=== PATIENT | male | born 1980 | race Caucasian/White ===

== ENCOUNTER 2021-04-11 08:23 | Emergency (ER) | payer OTHER ==
[2021-04-11] MEDS ORDERED: HYDROCODONE/APAP 10/325 TAB ONE (09:24)
--- NOTE | 2021-04-11 10:49 | RAD REPORT ---
EXAM DESCRIPTION: RAD - Ribs Right - 04/11/2021 9:27 am CLINICAL HISTORY: PAIN COMPARISON: No comparisons FINDINGS: Minimally displaced fracture of the lateral right seventh rib is noted. No underlying pneu mothorax is evident.
--- NOTE | 2021-04-11 11:01 | ER ---
Nurse's Notes [facility] Name: Jeremias Toro Age: 40 yrs Sex: Male : 1980 Arrival Date: 04/11/2021 Time: 08:26 Bed 24 Private MD: Diagnosis: Multiple fractures of ribs, right side Presentation: 04/11 08:42 Chief complaint: Patient states: he hit his back on the knob of a dresser last night, ap3 and it has been painful since. Coronavirus screen: Vaccine status: Patient reports being unvaccinated. Ebola Screen: No symptoms or risks identified at this time. Initial Sepsis Screen: Does the patient meet any 2 criteria? No. Patient's initial sepsis screen is negative. Does the patient have a suspected source of infection? No. Patient's initial sepsis screen is negative. Risk Assessment: Do you want to hurt yourself or someone else? Patient reports no desire to harm self or others. Onset of symptoms was April 10, 2021. 08:42 Method Of Arrival: Ambulatory ap3 08:42 Acuity: [place] 4 ap3 Triage Assessment: 08:44 General: Appears in no apparent distress. Behavior is cooperative. Pain: Complains of ap3 pain in right subscapular area Pain began suddenly, 1 day ago. Neuro: Level of Consciousness is awake, alert, obeys commands, Oriented to person, place, time, situation, Moves all extremities. Gait is steady, Speech is normal. Cardiovascular: Patient's skin is warm and dry. Respiratory: Airway is patent Respiratory effort is even, unlabored. Musculoskeletal: Swelling present in right subscapular area small area of swelling where pt reports hitting his back. Historical: - Allergies: 08:43 No Known Allergies; ap3 - Home Meds: 08:43 None [Active]; ap3 - PMHx: 08:43 Anxiety; Bipolar disorder; Schizophrenia; ap3 - Immunization history:: Client reports having NOT received the Covid vaccine. - Social history:: Smoking status: Patient reports the use of cigarette tobacco products, smokes one pack cigarettes per day. Patient uses alcohol, occasionally. Screenin:45 Abuse screen: Denies threats or abuse. Nutritional screening: No deficits noted. ap3 Tuberculosis screening: No symptoms or risk factors identified. Fall Risk None identified. Assessment: 08:45 Reassessment: see triage assessment. Neuro: No deficits noted. ap3 Vital Signs: 08:42 BP 130 / 90; Pulse 92; Resp 18; Temp 98.6(O); Pulse Ox 99% on R/A; Weight 54.43 kg; ap3 Height 5 ft. 7 in. (170.18 cm); Pain 10/10; 09:39 BP 163 / 95; Pulse 59; Resp 17; Pulse Ox 99% on R/A; ap3 10:41 BP 140 / 94; Pulse 70; Resp 16; Pulse Ox 98% on R/A; ap3 08:42 Body Mass Index 18.79 (54.43 kg, 170.18 cm) ap3 ED Course: 08:26 Patient arrived in ED. am2 08:36 Christin Vivar, RN is Primary Nurse. ap3 08:38 Tom Canas PA is PHCP. jr8 08:38 Kelvin Ibanez MD is Attending Physician. jr8 08:43 Triage completed. ap3 08:45 Arm band placed on right wrist. ap3 08:45 Patient has correct armband on for positive identification. Bed in low position. Call ap3 light in reach. Adult w/ patient. Pulse ox on. NIBP on. Door closed. Noise minimized. 09:05 Pt visited by significant other. ap3 09:07 X-Ray at pt bedside. ap3 09:27 XRAY Ribs RIGHT In Process Unspecified. EDMS Administered Medications: 09:00 Drug: [place] (HYDROcodone-acetaminophen) 10 mg-325 mg 1 tabs {Note: RASS-0.} Route: PO; ap3 10:28 Follow up: Response: No adverse reaction ap3 Outcome: 11:00 Discharge ordered by . jr8 11:08 Patient left the ED. ap3 Signatures: Dispatcher [employer] EDMS Tom Canas PA PA jr8 Christin Pace am2 Christin Vivar, RN RN ap3
--- NOTE | 2021-04-11 11:01 | EDPHYS ---
Physician Documentation [facility] Name: Jeremias Toro Age: 40 yrs Sex: Male : 1980 Arrival Date: 04/11/2021 Time: 08:26 Bed 24 Private MD: ED Physician Kelvin Ibanez HPI: 04/11 08:55 This 40 yrs old Male presents to ER via Ambulatory with complaints of Back jr8 Pain. 08:55 Onset: The symptoms/episode began/occurred acutely, last night. The pain does not jr8 radiate. Associated signs and symptoms: The patient has no apparent associated signs or symptoms. Modifying factors: The patient symptoms are alleviated by nothing, the patient symptoms are aggravated by any movement. Severity of symptoms: At their worst the symptoms were moderate, in the emergency department the symptoms are unchanged. The patient has not experienced similar symptoms in the past. The patient has not recently seen a physician. This is a 40-year-old male patient came in for right mid back pain after sustaining a fall hitting a knob on his dresser. Patient stated that he has had excruciating pain with breathing and with motion since then. Denies shortness of breath or any other injury.. Historical: - Allergies: 08:43 No Known Allergies; ap3 - Home Meds: 08:43 None [Active]; ap3 - PMHx: 08:43 Anxiety; Bipolar disorder; Schizophrenia; ap3 - Immunization history:: Client reports having NOT received the Covid vaccine. - Social history:: Smoking status: Patient reports the use of cigarette tobacco products, smokes one pack cigarettes per day. Patient uses alcohol, occasionally. ROS: 08:55 Eyes: Negative for injury, pain, redness, and discharge, ENT: Negative for injury, jr8 pain, and discharge, Neck: Negative for injury, pain, and swelling, Cardiovascular: Negative for chest pain, palpitations, and edema, Respiratory: Negative for shortness of breath, cough, wheezing, and pleuritic chest pain, Abdomen/GI: Negative for abdominal pain, nausea, vomiting, diarrhea, and constipation, MS/Extremity: Negative for injury and deformity, Skin: Negative for injury, rash, and discoloration, Neuro: Negative for headache, weakness, numbness, tingling, and seizure. 08:55 Back: Positive for pain at rest, pain with movement, of the right subscapular area. Exam: 08:55 Head/Face: Normocephalic, atraumatic. Neck: Trachea midline, no thyromegaly or masses jr8 palpated, and no cervical lymphadenopathy. Supple, full range of motion without nuchal rigidity, or vertebral point tenderness. No Meningismus. Chest/axilla: Normal chest wall appearance and motion. Nontender with no deformity. No lesions are appreciated. Cardiovascular: Regular rate and rhythm with a normal S1 and S2. No gallops, murmurs, or rubs. Normal PMI, no JVD. No pulse deficits. Respiratory: Lungs have equal breath sounds bilaterally, clear to auscultation and percussion. No rales, rhonchi or wheezes noted. No increased work of breathing, no retractions or nasal flaring. Abdomen/GI: Soft, non-tender, with normal bowel sounds. No distension or tympany. No guarding or rebound. No evidence of tenderness throughout. Skin: Warm, dry with normal turgor. Normal color with no rashes, no lesions, and no evidence of cellulitis. MS/ Extremity: Pulses equal, no cyanosis. Neurovascular intact. Full, normal range of motion. Neuro: Awake and alert, GCS 15, oriented to person, place, time, and situation. Cranial nerves II-XII grossly intact. Motor strength 5/5 in all extremities. Sensory grossly intact. 08:55 Constitutional: The patient appears alert, awake, uncomfortable. 08:55 Back: pain, that is moderate, of the right subscapular area, ROM is painful, normal spinal alignment noted, CVA tenderness, is absent, Pain over the right posterior ribs near the subscapular region. No crepitus noted.. Vital Signs: 08:42 BP 130 / 90; Pulse 92; Resp 18; Temp 98.6(O); Pulse Ox 99% on R/A; Weight 54.43 kg; ap3 Height 5 ft. 7 in. (170.18 cm); Pain 10/10; 09:39 BP 163 / 95; Pulse 59; Resp 17; Pulse Ox 99% on R/A; ap3 10:41 BP 140 / 94; Pulse 70; Resp 16; Pulse Ox 98% on R/A; ap3 08:42 Body Mass Index 18.79 (54.43 kg, 170.18 cm) ap3 MDM: 08:38 Patient medically screened. jr8 10:58 Data reviewed: vital signs, nurses notes, radiologic studies, plain films. Data jr8 interpreted: Pulse oximetry: on room air is 98 %. Interpretation: normal. Counseling: I had a detailed discussion with the patient and/or guardian regarding: the historical points, exam findings, and any diagnostic results supporting the discharge/admit diagnosis, radiology results, the need for outpatient follow up, a family practitioner, to return to the emergency department if symptoms worsen or persist or if there are any questions or concerns that arise at home. ED course: With patient that he has minimally displaced rib fracture on the right side consistent with where his pain was. We will control his pain with anti-inflammatories but otherwise to make sure that he is up walking around and doing deep breathing. We will give him a few days off so he can relax. If you get worse or shortness of breath or to ensue to come back for further evaluation.. 04/11 08:53 Order name: XRAY Ribs RIGHT; Complete Time: 10:53 jr8 Administered Medications: 09:00 Drug: [place] (HYDROcodone-acetaminophen) 10 mg-325 mg 1 tabs {Note: RASS-0.} Route: PO; ap3 10:28 Follow up: Response: No adverse reaction ap3 Disposition: 04/12 08:49 Co-signature as Attending Physician, Kelvin Ibanez MD I agree with the assessment and sp3 plan of care. Disposition Summary: 04/11/21 11:00 Discharge Ordered Location: Home jr Problem: new jr8 Symptoms: have improved jr8 Condition: Stable jr8 Diagnosis - Multiple fractures of ribs, right side jr8 Followup: jr8 - With: Private Physician - When: 5 - 6 days - Reason: Recheck today's complaints, Continuance of care, Re-evaluation by your physician Discharge Instructions: - Discharge Summary Sheet jr8 - Rib Fracture jr8 Forms: - Medication Reconciliation Form jr8 - Thank You Letter jr8 - Work release form jr8 - Antibiotic Education jr8 - Prescription Opioid Use jr8 Prescriptions: - Ibuprofen 800 mg Oral Tablet - take 1 tablet by ORAL route every 8 hours As needed take with food; 30 tablet; jr8 Refills: 0, Product Selection Permitted Signatures: Dispatcher [employer] Tom Winn PA PA jr8 Christin Vivar, CAT RN ap3 Kelvin Ibanez MD MD sp3
[2021-04-11 11:14] VITALS: TEMP 98.6
[2021-04-11 11:17] VITALS: BP 140/94; O2SAT 98
== END 2021-04-11 11:08 | disposition home or self-care (01) ==
LOC: ER 08:23
DX: S22.41XA Multiple fractures of ribs, right side, initial encounter for closed fracture (principal); W22.8XXA Striking against or struck by other objects, initial encounter; Y93.9 Activity, unspecified; Y92.013 Bedroom of single-family (private) house as the place of occurrence of the external cause; F17.210 Nicotine dependence, cigarettes, uncomplicated
CPT/HCPCS: 99283

== ENCOUNTER 2023-02-13 01:55 | Emergency (ER) | payer OTHER ==
--- OUTSIDE RECORDS SUMMARY | 2023-02-13 01:58 | XMS REPORT | Continuity of Care Document ---
:1980 Author Organization [facility] t Address 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 Problems Condition Condition Condition Status Onset Resolution Last Treating Co mments Source Name Details Category Date Date Treatment Clinician Date No known No known Disease Unive rs active active ity of problems problems [facility] Allergies, Adverse Reactions, Alerts Allergy Allergy Status Severity Reaction(s) Onset Inactive Treating Comm ents Source Name Type Date Date Clinician NO KNOWN Drug Active Univers ALLERGIE Class ity of S [facility] Social History Social Habit Start Date Stop Date Quantity Comments Source Exposure to Not sure University SARS-CoV-2 [place] [facility] (event) Branch History of Cigarette Smoker Tia Villa eybold - tobacco use External Tobacco use and 2022-07-31 2022-07-31 Smokeless tobacco Ke lopez Vivasybold - exposure 00:00:00 00:00:00 non-user External Alcohol intake 2022-07-31 2022-07-31 Ex-drinker Tia larry - 00:00:00 00:00:00 (finding) External Sex Ass[birth year] At [birth year] Tia teran - 00:00:00 00:00:00 External Smoking Status Start Date Stop Date Source Smokes tobacco daily 2022-07-31 00:00:00 Tia Gerardo - External Unknown if ever smoked [facility] Medical Branch Medications Ordered Filled Start Stop Current Ordering Indication Dosage Frequency Signature Comments Components Source Medication Medication Date Date Medication? Clinician (SIG) Name Name Risperidone Yes 2mg Take 2 mg K elsey 2 MG oral 2-13 by mouth 2 Seyb old Tablet 13:53: times - 52 daily Externa l Divalproex Yes Take by Rita ey Sodium ER 2-13 mouth Seybold 500 MG oral 13:53: - 52 Externa l Meloxicam Yes [id number] 7.5mg Take 1 Tia 7.5 MG oral 2-13 tablet Seybol d Tablet 00:00: (7.5 mg - 00 total) by Externa mouth l daily Trazodone Yes Tia HCl 150 MG 2-09 Seybold oral Tablet 00:00: - 00 Externa l hydrOXYzine Yes Tia HCl 25 MG 2-05 Seybold oral Tablet 00:00: - 00 Externa l ibuprofen 0 2020- No 600mg 600 mg, Uni vers (IBU) 03-14 Oral, ity of tablet 600 18:15: 17:21 ONCE, 1 Will as mg 00 :00 dose, On Medical Mon Branch 03/14/21 at 1315, MAURY HYDROcodone 2020- No 1{tbl} 1 tablet, Univers -acetaminop 03-14 Oral, ity of hen (NORCO 18:15: 17:21 ONCE, 1 Will as 5) 5-325 mg 00 :00 dose, On Medi yanely tablet 1 Mon Branch tablet 03/14/21 at 1315, MAURY ibuprofen 2020-0 Yes [id number] 600mg Take 1 Univers 600 mg 03-14 [id number] tablet by ity of tablet 00:00: mouth [place] 00 every 6 Medical (six) Branch hours as needed for Pain (scale 4-6). traZODone 0 Yes 150mg Take 150 Uni vers 150 mg 7-03 mg by ity of tablet 01:24: mouth at [place] 54 bedtime. Medical Branch divalproex Yes 1500mg Take 1,500 Univers ER 7-03 mg by ity of (DEPAKOTE 01:24: mouth [place] ER) 500 mg 54 every Medical 24 hr evening. Branch tablet risperiDONE Yes 4mg Take 4 mg U nivers 4 mg tablet 7-03 by mouth ity of 01:24: every [place] 54 evening. Medical Branch traZODone Yes 150mg Take 150 Uni vers 150 mg 7-03 mg by ity of tablet 01:24: mouth at [place] 54 bedtime. Medical Branch divalproex Yes 1500mg Take 1,500 Univers ER 7-03 mg by ity of (DEPAKOTE 01:24: mouth [place] ER) 500 mg 54 every Medical 24 hr evening. Branch tablet risperiDONE Yes 4mg Take 4 mg U nivers 4 mg tablet 7-03 by mouth ity of 01:24: every [place] 54 evening. Medical Branch traZODone Yes 150mg Take 150 Uni vers 150 mg 7-02 mg by ity of tablet 20:24: mouth at [place] 54 bedtime. Medical Branch divalproex Yes 1500mg Take 1,500 Univers ER 7-02 mg by ity of (DEPAKOTE 20:24: mouth [place] ER) 500 mg 54 every Medical 24 hr evening. Branch tablet risperiDONE Yes 4mg Take 4 mg U nivers 4 mg tablet 7-02 by mouth ity of 20:24: every [place] 54 evening. Medical Branch Vital Signs Vital Name Observation Time Observation Value Comments Source Systolic blood 2022-07-31 19:52:00 142 mm[Hg] Tia Gerardo - pressure External Diastolic blood 2022-07-31 19:52:00 76 mm[Hg] Mony Gerardo - pressure External Heart rate 2022-07-31 19:52:00 56 /min Tia almeidabopawel - External Body temperature 2022-07-31 19:52:00 36.33 Shari Rita Gerardo - External Respiratory rate 2022-07-31 19:52:00 19 /min Rita Gerardo - External Body height 2022-07-31 19:52:00 170.2 cm Tia cisse - External Body weight 2022-07-31 19:52:00 60.328 kg Tia cisse - External BMI 2022-07-31 19:52:00 20.83 kg/m2 Tia cisse - External Oxygen saturation in 2022-07-31 19:52:00 99 /min Tia Gerardo - Arterial blood by External Pulse oximetry Systolic blood 2021-03-14 17:15:00 123 mm[Hg] Univer sity of pressure [facility] Diastolic blood 2021-03-14 17:15:00 81 mm[Hg] Unive rsity of [facility] Heart rate 2021-03-14 17:15:00 70 /min [facility] Body temperature 2021-03-14 17:15:00 36.89 Shari [facility] Respiratory rate 2021-03-14 17:15:00 18 /min [facility] Body weight 2021-03-14 17:15:00 54.885 kg Universi [facility] BMI 2021-03-14 17:15:00 18.95 kg/m2 [facility] Oxygen saturation in 2021-03-14 17:15:00 100 /min [facility] Arterial blood by [facility] Pulse oximetry Branch Procedures Procedure Date / Time Performed Performing Clinician [facility] e ASSIGNMENT OF BENEFITS 2021-03-14 18:01:43 Doctor Unassigned, No [facility] XR ANKLE 3+ VW LEFT 2021-03-14 17:35:53 [facility] XR FOOT 3+ VW LEFT 2021-03-14 17:35:53 Luciana Kearney [facility] NOTICE OF PRIVACY 2021-03-14 17:21:25 Doctor Unassigned, No Univ [facility] CONSENT/REFUSAL FOR 2021-03-14 17:10:40 Doctor Unassigned, No [facility] DIAGNOSIS AND [facility] Medical Branch TREATMENT REFERRAL- 2021-02-10 05:01:00 Doctor Unassigned, [facility] REQUEST/RESPONSE Name [facility] Encounters Start End Encounter Admission Attending Care Care Encounter Source Date/Time Date/Time Type Type Clinicians Facility Department ID 2021-04-19 Emergency [facility] [id number] Univers 01:37:50 ity [facility] 2022-09-18 2022-09-18 Outpatient TIA CORTEZ [id number] Tia 11:00:00 11:00:00 BONNY Sedavidsonol rigoberto 2022-09-13 2022-09-13 Outpatient TIA CORTEZ [id number] Tia 11:15:00 11:15:00 BONNY Seybol rigoberto 2022-09-04 2022-09-04 Outpatient TIA CORTEZ [id number] Tia 11:00:00 11:00:00 BONNY Seybol rigoberto 2022-07-31 2022-07-31 Outpatient TIA CORTEZ [id number] Tia 14:00:00 14:00:00 BONNY Londonool rigoberto 2021-03-14 2021-03-14 Emergency [facility] [id number] Univers 12:22:00 13:43:00 Luciana Tello [id number] i [facility] [id number] [facility] [id number] [facility] 084 Branch 2021-02-16 2021-02-16 [facility] [id number] Univers 14:30:00 14:30:00 [facility] 2021-02-10 2021-02-10 Orders Doctor ROY [id number] Univers 00:00:00 00:00:00 Only UnassignedPINKY [id number] ity of [place] [facility] [id number] [place] [address] [id number] [facility] 009 Branch 2021-02-01 2021-02-01 [facility] [id number] Univers 13:30:00 13:30:00 CORY [facility] Results Test Description Test Time Test Comments Results Result Comments Source Valproic Acid Level 2018-12-23 09:26:37 Test Item Value Reference Range Interpretation Comme nts Valproic Acid Level (test code = Valproic Acid Level) 64.2 ug/mL(g) 50.0-100.0 Thyroid Stimulating [id number] 07:52:44 Test Item Value Reference Range Interpretation Comments TSH (test code = TSH) 2.760 mIU/mL 0.270-4.200 Thyroxine Free [id number] 07:52:44 Test Item Value Reference Range Interpretation Comments T4 Free (test code = T4 Free) 1.280 ng/dL 0.930-1.700 Comprehensive Metabolic [id number] 07:43:19 Test Item Value Reference Range Interpretation Comments Sodium Level (test code = Sodium 141.0 mmol/L 135.0-145.0 Level) Potassium Level (test code = 4.5 mmol/L 3.5-5.1 Potassium Level) Chloride Level (test code = 104 mmol/L 98-105 Chloride Level) CO2 (test code = CO2) 27 mmol/L 22-29 Anion Gap (test code = Anion 10 mmol/L 7-16 Gap) BUN (test code = BUN) 13.00 mg/dL 6.00-20.00 Creatinine Level (test code = 0.80 mg/dL 0.70-1.20 Creatinine Level) BUN/Creat Ratio (test code = 16 N BUN/Creat Ratio) Glucose Level (test code = 88 mg/dL 70-115 Glucose Level) Calcium Level (test code = 9.1 mg/dL 8.3-10.5 Calcium Level) Alk Phos (test code = Alk Phos) 59 U/L 40-129 Bilirubin Total (test code = 0.2 mg/dL 0.1-0.9 Bilirubin Total) Albumin Level (test code = 4.3 g/dL 3.5-5.2 Albumin Level) Protein Total (test code = 6.2 g/dL 6.4-8.3 L Protein Total) ALT (test code = ALT) 14 U/L 1-41 AST (test code = AST) 15 U/L 1-40 Globulin (test code = Globulin) 1.9 g/dL 2.9-3.1 L A/G Ratio (test code = A/G 2.3 ratio N Ratio) Comprehensive Metabolic [id number] 07:43:19 Test Item Value Reference Range Interpretation Comments Sodium Level (test 141.0 mmol/L 135.0-145.0 code = Sodium Level) Potassium Level 4.5 mmol/L 3.5-5.1 (test code = Potassium Level) Chloride Level (test 104 mmol/L 98-105 code = Chloride Level) CO2 (test code = 27 mmol/L 22-29 CO2) Anion Gap (test code 10 mmol/L 7-16 = Anion Gap) BUN (test code = 13.00 mg/dL 6.00-20.00 BUN) Creatinine Level 0.80 mg/dL 0.70-1.20 (test code = Creatinine Level) BUN/Creat Ratio 16 N (test code = BUN/Creat Ratio) Glucose Level (test 88 mg/dL 70-115 code = Glucose Level) Calcium Level (test 9.1 mg/dL 8.3-10.5 code = Calcium Level) Alk Phos (test code 59 U/L 40-129 = Alk Phos) Bilirubin Total 0.2 mg/dL 0.1-0.9 (test code = Bilirubin Total) Albumin Level (test 4.3 g/dL 3.5-5.2 code = Albumin Level) Protein Total (test 6.2 g/dL 6.4-8.3 L code = Protein Total) ALT (test code = 14 U/L 1-41 ALT) AST (test code = 15 U/L 1-40 AST) Globulin (test code 1.9 g/dL 2.9-3.1 L = Globulin) A/G Ratio (test code 2.3 ratio N = A/G Ratio) eGFR AA (test code = >60 N eGFR (e stimated eGFR AA) mL/min/1.73 m2 Glomerular Filtration Rate ) is an estimated va lue, calculated from the patient's serum creatinine usin g the MDRD equation. It is NOT the patient 's actual GFR. The eGFR provides a more clinically usef ul measure of kidn ey disease than se rum creatinine alone.This calculation solange es sex and race in to account, if the information is provided. If th e race is not provided, and t he patient is -Ronel n, multiply by 1.2 12. If sex is not provided, and t he patient is fema le, multiply by 0.7 42. Results for pat ients <18 years of ag e have not been validated by th e MDRD study and should be interpreted wit h caution. eGFR R esult Interpretation: eGFR > or = 60 is in the Normal RangeeGF R < 60 may mean kid hector diseaseeGFR < 1 5 may mean kidney failure Rang es recommended by the National Kidney Foundation, http://nkdep.ni h.gov Comprehensive Metabolic [id number] 07:43:19 Test Item Value Reference Range Interpretation Comments Sodium Level (test 141.0 mmol/L 135.0-145.0 code = Sodium Level) Potassium Level 4.5 mmol/L 3.5-5.1 (test code = Potassium Level) Chloride Level (test 104 mmol/L 98-105 code = Chloride Level) CO2 (test code = 27 mmol/L 22-29 CO2) Anion Gap (test code 10 mmol/L 7-16 = Anion Gap) BUN (test code = 13.00 mg/dL 6.00-20.00 BUN) Creatinine Level 0.80 mg/dL 0.70-1.20 (test code = Creatinine Level) BUN/Creat Ratio 16 N (test code = BUN/Creat Ratio) Glucose Level (test 88 mg/dL 70-115 code = Glucose Level) Calcium Level (test 9.1 mg/dL 8.3-10.5 code = Calcium Level) Alk Phos (test code 59 U/L 40-129 = Alk Phos) Bilirubin Total 0.2 mg/dL 0.1-0.9 (test code = Bilirubin Total) Albumin Level (test 4.3 g/dL 3.5-5.2 code = Albumin Level) Protein Total (test 6.2 g/dL 6.4-8.3 L code = Protein Total) ALT (test code = 14 U/L 1-41 ALT) AST (test code = 15 U/L 1-40 AST) Globulin (test code 1.9 g/dL 2.9-3.1 L = Globulin) A/G Ratio (test code 2.3 ratio N = A/G Ratio) eGFR AA (test code = >60 N eGFR (e stimated eGFR AA) mL/min/1.73 m2 Glomerular Filtration Rate ) is an estimated va lue, calculated from the patient's serum creatinine usin g the MDRD equation. It is NOT the patient 's actual GFR. The eGFR provides a more clinically usef ul measure of kidn ey disease than se rum creatinine alone.This calculation solange es sex and race in to account, if the information is provided. If th e race is not provided, and t he patient is -Ronel n, multiply by 1.2 12. If sex is not provided, and t he patient is fema le, multiply by 0.7 42. Results for pat ients <18 years of ag e have not been validated by [facility] MDRD study and should be interpreted wit h caution. eGFR R esult Interpretation: eGFR > or = 60 is in the Normal RangeeGF R < 60 may mean kid hector diseaseeGFR < 1 5 may mean kidney failure Rang es recommended by the National Kidney Foundation, http://nkdep.ni h.gov eGFR Non-AA (test >60.00 N eGFR (aurelia mated code = eGFR Non-AA) mL/min/1.73 m2 Glomer ular Filtration Rate ) is an estimated va lue, calculated from the patient's serum creatinine usin g the MDRD equation. It is NOT the patient 's actual GFR. The eGFR provides a more clinically usef ul measure of kidn ey disease than se rum creatinine alone.This calculation solange es sex and race in to account, if the information is provided. If th e race is not provided, and t he patient is -Ronel n, multiply by 1.2 12. If sex is not provided, and t he patient is fema le, multiply by 0.7 42. Results for pat ients <18 years of ag e have not been validated by [facility] MDRD study and should be interpreted wit h caution. eGFR R esult Interpretation: eGFR > or = 60 is in the Normal RangeeGF R < 60 may mean kid hector diseaseeGFR < 1 5 may mean kidney failure Rang es recommended by the National Kidney Foundation, http://nkdep.ni h.gov RPR [id number] 17:53:31 Test Item Value Reference Range Interpretation Comments RPR Qual (test code = RPR Qual) Non-Reactive Non-Reactive Reactive Control (test code = Reactive Reactive Control) Weak Reactive Control (test Weak Reactive code = Weak Reactive Control) Non-Reactive Control (test code Non-Reactive = Non-Reactive Control) Lot # (test code = Lot #) [id number] N Expiration Dt (test code = 04-17-2020 N Expiration Dt) Thyroid Stimulating [id number] 08:53:34 Test Item Value Reference Range Interpretation Comments TSH (test code = TSH) 4.670 mIU/mL 0.270-4.200 H Lipid [id number] 08:38:28 Test Item Value Reference Range Interpretation Comments Cholesterol Total 179 mg/dL 0-200 RISK OF HE ART (test code = DISEASEPublishe d by Cholesterol Total) [place] [employer] Lorri lyte Optimal Borderl ine Increased RiskC HOL <200 200-239 >240TRI G <150 150-199 >200HDL Male >60 <40HDL Fema le >60 <50LDL <100 130 -159 >160LDL Near op timal is 100-129 Triglycerides (test 201 mg/dL 9-200 H code = Triglycerides) HDL (test code = HDL) 50 mg/dL 40-60 LDL (test code = LDL) 88 mg/dL 0-130 The eq uation being used in this calcula tion is LDL = (Chol - H DL) - (Trig / 5) VLDL (test code = 40 mg/dL 5-40 The equati on being used VLDL) in this calcula tion is VLDL = Trig / 5 Chol/HDL (test code = 3.6 ratio 0.0-5.0 Chol/HDL) LDL/HDL Ratio (test 2 N The equa tion being used code = LDL/HDL Ratio) in thi s calculation is LDL/HDL Ratio=L DL Calc/HDL Chol Valproic Acid [id number] 08:38:22 Test Item Value Reference Range Interpretation Comments Valproic Acid Level (test code 22.2 ug/mL(g) 50.0-100.0 L = Valproic Acid Level)
[2023-02-13] MEDS ORDERED: ONDANSETRON 4 MG (ODT) TAB ONE (02:24)
--- NOTE | 2023-02-13 02:51 | ER ---
Nurse's Notes [facility] Name: Jeremias Toro Age: 42 yrs Sex: Male : 1980 Arrival Date: 02/13/2023 Time: 01:55 Bed 5 Private MD: Diagnosis: Acute pharyngitis, unspecified Presentation: 02/13 02:04 Chief complaint: Patient states: nausea cough sore throat and fever since yesterday am. Coronavirus screen: Vaccine status: Patient reports receiving the 2nd dose of the covid vaccine. Ebola Screen: Patient negative for fever greater than or equal to 101.5 degrees Fahrenheit, and additional compatible Ebola Virus Disease symptoms. Initial Sepsis Screen: Does the patient meet any 2 criteria? No. Patient's initial sepsis screen is negative. Does the patient have a suspected source of infection? No. Patient's initial sepsis screen is negative. Risk Assessment: Do you want to hurt yourself or someone else? Patient reports no desire to harm self or others. Onset of symptoms was February 12, 2023 at 08:00. 02:04 Method Of Arrival: Ambulatory 02:04 Acuity: CATALINA 4 kl Triage Assessment: 02:06 General: Appears uncomfortable, Behavior is calm, cooperative. EENT: Reports pain when kl swallowing. Neuro: No deficits noted. Respiratory: Reports cough that is Airway is patent Trachea midline Respiratory effort is even, unlabored. Historical: - Allergies: 02:07 No Known Allergies; kl - PMHx: 02:06 Anxiety; Bipolar disorder; Schizophrenia; sg5 - Immunization history:: Adult Immunizations up to date. - Social history:: Smoking status: Patient reports the use of cigarette tobacco products, smokes one-half pack cigarettes per day. Screenin:06 [facility] ED Fall Risk Assessment (Adult) History of falling in the last 3 months, sg5 including since admission No falls in past 3 months (0 pts). Abuse screen: Denies threats or abuse. Nutritional screening: No deficits noted. Tuberculosis screening: No symptoms or risk factors identified. Assessment: 02:05 General: Appears uncomfortable, Behavior is calm, cooperative, appropriate for age, sg5 agitated, Reports fever for 12-24 hours. Pain: Complains of pain in throat. Neuro: Level of Consciousness is awake, alert, obeys commands, Oriented to person, place, time, situation, Appropriate for age. Cardiovascular: Capillary refill < 3 seconds Patient's skin is warm and dry. Respiratory: Airway is patent Trachea midline Respiratory effort is even, unlabored, Respiratory pattern is regular, symmetrical. Respiratory: Breath sounds are clear bilaterally. GI: No signs and/or symptoms were reported involving the gastrointestinal system. : No signs and/or symptoms were reported regarding the genitourinary system. EENT: Throat is pink Reports pain when swallowing. Derm: No signs and/or symptoms reported regarding the dermatologic system. Musculoskeletal: No signs and/or symptoms reported regarding the musculoskeletal system. Vital Signs: 02:04 BP 135 / 91; Pulse 75; Resp 20; Temp 98.3(TE); Pulse Ox 98% on R/A; Weight 68.04 kg kl (R); Height 5 ft. 7 in. ; Pain 8/10; 02:06 BP 123 / 78; Pulse 78; Resp 16; Pulse Ox 98% on R/A; sg5 02:04 Body Mass Index 23.49 (68.04 kg, 170.18 cm) kl 02:04 Pain Scale: Adult kl ED Course: 01:56 Patient arrived in ED. ag3 02:00 Kailee Mehta FNP-C is [facility]. kb 02:00 Anton Leblanc MD is Attending Physician. kb 02:04 Arm band placed on right wrist. vc1 02:06 Triage completed. kl 02:06 Patient has correct armband on for positive identification. Bed in low position. Call sg5 light in reach. Side rails up X 1. Valuables Left with patient. 03:01 Rosetta Vance, CAT is Primary Nurse. vc1 03:01 No provider procedures requiring assistance completed. Patient did not have IV access vc1 during this emergency room visit. 03:02 Provided Education on: use over the counter throat lozenge for sore throat. vc1 Administered Medications: 02:14 Drug: Ondansetron PO 4 mg Route: PO; sg5 03:01 Follow up: Response: No adverse reaction; Marked relief of symptoms vc1 03:01 Drug: Amoxicillin-Clavulanate PO 875 mg Route: PO; vc1 03:01 Follow up: Response: Medication administered at discharge. vc1 Medication: 03:01 VIS not applicable for this client. vc1 Outcome: 02:51 Discharge ordered by . rubio 03:01 Discharged to home ambulatory. vc1 03:01 Condition: good 03:01 Discharge instructions given to patient, Instructed on discharge instructions, follow up and referral plans. medication usage, Demonstrated understanding of instructions, follow-up care, medications, Prescriptions given X 2. 03:02 Patient left the ED. vc1 Signatures: Kailee Mehta, FLY WORKER-C FLY WORKER-CkJoselin Márquez, RN RN Anton Garcia MD MD cha Gomez, Alice ag3 Rosetta Vance RN RN vc1 Olive Mei RN RN sg5
--- NOTE | 2023-02-13 02:52 | EDPHYS ---
Physician Documentation [facility] Name: Jeremias Toro Age: 42 yrs Sex: Male : 1980 Arrival Date: 02/13/2023 Time: 01:55 Bed 5 Private MD: ED Physician Anton Leblanc HPI: 02/13 02:04 This 42 yrs old Male presents to ER via Unassigned with complaints of Fever, Sore kb Throat. 02:04 The patient or guardian reports cough, that is intermittent, described as mild, flu kb symptoms, low-grade fever. Onset: The symptoms/episode began/occurred today. Severity of symptoms: At their worst the symptoms were mild, moderate, in the emergency department the symptoms are unchanged. Modifying factors: The symptoms are alleviated by nothing, the symptoms are aggravated by nothing. Associated signs and symptoms: Pertinent positives: fever, sore throat. The patient has not experienced similar symptoms in the past. The patient has not recently seen a physician. Pt reports sore throat, cough, fever and nausea since this morning. States "I think I have covid.". Historical: - Allergies: 02:07 No Known Allergies; kl - PMHx: 02:06 Anxiety; Bipolar disorder; Schizophrenia; sg5 - Immunization history:: Adult Immunizations up to date. - Social history:: Smoking status: Patient reports the use of cigarette tobacco products, smokes one-half pack cigarettes per day. ROS: 02:03 Cardiovascular: Negative for chest pain, palpitations, and edema. kb 02:03 Constitutional: Positive for fever. 02:03 ENT: Positive for sore throat. 02:03 Respiratory: Positive for cough. 02:03 Abdomen/GI: Positive for nausea. 02:03 All other systems are negative. Exam: 02:03 Constitutional: This is a well developed, well nourished patient who is awake, alert, kb and in no acute distress. Head/Face: Normocephalic, atraumatic. ENT: Moist Mucous membranes Cardiovascular: Regular rate and rhythm with a normal S1 and S2. No gallops, murmurs, or rubs. No pulse deficits. Respiratory: Respirations even and unlabored. No increased work of breathing. Talking in full sentences Skin: Warm, dry with normal turgor. Normal color. MS/ Extremity: Pulses equal, no cyanosis. Neurovascular intact. Full, normal range of motion. Neuro: Awake and alert, GCS 15, oriented to person, place, time, and situation. Moves all extremities. Normal gait. Vital Signs: 02:04 BP 135 / 91; Pulse 75; Resp 20; Temp 98.3(TE); Pulse Ox 98% on R/A; Weight 68.04 kg kl (R); Height 5 ft. 7 in. ; Pain 8/10; 02:06 BP 123 / 78; Pulse 78; Resp 16; Pulse Ox 98% on R/A; sg5 02:04 Body Mass Index 23.49 (68.04 kg, 170.18 cm) kl 02:04 Pain Scale: Adult kl MDM: 02:00 Patient medically screened. kb 02:03 Differential diagnosis: strep, covid, uri. Data reviewed: vital signs, nurses notes. kb 02:47 Transition of care: After a detail discussion of the patient's case, care is kb transferred to Anton Leblanc MD. 02/13 02:02 Order name: Strep; Complete Time: 02:50 kb 02/13 02:19 Order name: SARS-COV-2 RT PCR; Complete Time: 02:50 EDMS 02/13 02:36 Order name: Throat Culture EDMS Administered Medications: 02:14 Drug: Ondansetron PO 4 mg Route: PO; sg5 03:01 Follow up: Response: No adverse reaction; Marked relief of symptoms vc1 03:01 Drug: Amoxicillin-Clavulanate PO 875 mg Route: PO; vc1 03:01 Follow up: Response: Medication administered at discharge. vc1 Disposition Summary: 02/13/23 02:51 Discharge Ordered Location: Home rubio Problem: new rubio Symptoms: have improved rubio Condition: Stable rubio Diagnosis - Acute pharyngitis, unspecified rubio Followup: rubio - With: Private Physician - When: - Reason: Recheck today's complaints, Continuance of care, Re-evaluation by your physician Discharge Instructions: - Discharge Summary Sheet rubio - Pharyngitis rubio - Sore Throat rubio - Upper Respiratory Infection, Adult rubio - Pharyngitis, Upip-rv-Dysn rubio Forms: - Medication Reconciliation Form rubio - Thank You Letter ruibo - Antibiotic Education rubio - Prescription Opioid Use rubio - Patient Portal Instructions rubio - Leadership Thank You Letter [facility] Prescriptions: - Augmentin 875-125 mg Oral Tablet - take 1 tablet by ORAL route every 12 hours for 7 days; 14 tablet; Refills: 0, [facility] Product Selection Permitted - Alee-D 12 Hour 60-120 mg Oral Tablet Sustained Release 12 hr - take 1 tablet by ORAL route every 12 hours As needed; 20 tablet; Refills: 0, [facility] Product Selection Permitted Signatures: Dispatcher [employer] Kailee Carlson, Joselin Forman, RN Anton Delgado MD MD cha Calcote, Vanessa, RN RN vc1 Olive Mei RN RN sg5 Corrections: (The following items were deleted from the chart) 02:19 02:03 SARS-COV-2 Antigen Rapid+I.LAB.BRZ ordered. [facility] JERONIMOAR
[2023-02-13] MEDS ORDERED: AMOX/K CLAV 875 MG TAB ONE (03:07)
[2023-02-13 04:31] VITALS: BP 123/78; TEMP 98.3; O2SAT 98
== END 2023-02-13 03:02 | disposition home or self-care (01) ==
LOC: ER 01:55
DX: J02.9 Acute pharyngitis, unspecified (principal); R50.9 Fever, unspecified; F17.210 Nicotine dependence, cigarettes, uncomplicated; Z20.822 Contact with and (suspected) exposure to COVID-19
CPT/HCPCS: 87070; 87081; 87635; Q0162

== ENCOUNTER 2023-05-02 13:35 | Emergency (ER) | payer OTHER ==
--- OUTSIDE RECORDS SUMMARY | 2023-05-02 13:38 | XMS REPORT | Continuity of Care Document ---
:1980 Author Organization [facility] t Address 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 Problems Condition Condition Condition Status Onset Resolution Last Treating Co mments Source Name Details Category Date Date Treatment Clinician Date No known No known Disease Unive rs active active ity of problems problems [facility] Allergies, Adverse Reactions, Alerts Allergy Allergy Status Severity Reaction(s) Onset Inactive Treating Comm ents Source Name Type Date Date Clinician NO KNOWN Drug Active Univers ALLERGIE Class ity of S [facility] Social History Social Habit Start Date Stop Date Quantity Comments Source Exposure to Not sure University SARS-CoV-2 [facility] (event) [place] History of Cigarette Smoker Tia almeidabold - tobacco use External Tobacco use and 2022-07-31 2022-07-31 Smokeless tobacco Marcelo marroquin Seybold - exposure 00:00:00 00:00:00 non-user External Alcohol intake 2022-07-31 2022-07-31 Ex-drinker Tia larry - 00:00:00 00:00:00 (finding) External Sex Ass[birth year] Tia teran - 00:00:00 00:00:00 External Smoking Status Start Date Stop Date Source Smokes tobacco daily 2022-07-31 00:00:00 Tia Gerardo - External Unknown if ever smoked [facility] Medications Ordered Filled Start Stop [...] 13:53: - 52 Externa l Meloxicam Yes [id number] 7.5mg Take 1 Tia 7.5 MG oral 2-13 tablet Seybol d Tablet 00:00: (7.5 mg - 00 total) by Externa mouth l daily Trazodone Yes Tia HCl 150 MG 2-09 Seybold oral Tablet 00:00: - 00 Externa l hydrOXYzine 0 Yes Tia HCl 25 MG 2-05 Seybold oral Tablet 00:00: - 00 Externa l ibuprofen 0 2020- No 600mg 600 mg, Uni vers (IBU) 03-14 Oral, ity of tablet 600 18:15: 17:21 ONCE, 1 Will as mg 00 :00 dose, On Medical Mon Branch 03/14/21 at 1315, MAURY HYDROcodone 2020-0 202- No 1{tbl} 1 tablet, Univers -acetaminop 03-14 Oral, ity of hen (NORCO 18:15: 17:21 ONCE, 1 Will as 5) 5-325 mg 00 :00 dose, On Medi yanely tablet 1 Mon Branch tablet 03/14/21 at 1315, MAURY ibuprofen 2020-0 Yes [id number] 600mg Take 1 Univers 600 mg 03-14 [id number] tablet by ity of tablet 00:00: mouth [place] 00 every 6 Medical (six) Branch hours as needed for Pain (scale 4-6). traZODone 0 Yes 150mg Take 150 Uni vers 150 mg 7-03 mg by ity of tablet 01:24: mouth at [place] 54 bedtime. Medical Branch divalproex 0 Yes 1500mg Take 1,500 Univers ER 7-03 mg by ity of (DEPAKOTE 01:24: mouth [place] ER) 500 mg 54 every Medical 24 hr evening. Branch tablet risperiDONE Yes 4mg Take 4 mg U nivers 4 mg tablet 7-03 by mouth ity of 01:24: every [place] 54 evening. Medical Branch traZODone 0 Yes 150mg Take 150 Uni [...] every [place] 54 evening. Medical Branch traZODone 0 Yes 150mg Take 150 Uni vers 150 mg 7-02 mg by ity of tablet 20:24: mouth at [place] 54 bedtime. Medical Branch divalproex 0 Yes 1500mg Take 1,500 Univers ER 7-02 [...] Heart rate 2022-07-31 19:52:00 56 /min Tia cisse - External Body temperature 2022-07-31 19:52:00 36.33 [...] 17:15:00 123 mm[Hg] Univer sity of pressure [facility] Diastolic blood 2021-03-14 17:15:00 81 mm[Hg] Unive rsity of [facility] Heart rate 2021-03-14 17:15:00 70 /min [facility] Body temperature 2021-03-14 17:15:00 36.89 Shari [facility] Respiratory rate 2021-03-14 17:15:00 18 /min [facility] Body weight 2021-03-14 17:15:00 54.885 kg Universi [facility] BMI 2021-03-14 17:15:00 18.95 kg/m2 [facility] Oxygen saturation in 2021-03-14 17:15:00 100 /min [facility] Arterial blood by [facility] Pulse oximetry Branch Procedures Procedure Date / Time Performed Performing Clinician Formerly [facility] e ASSIGNMENT OF BENEFITS 2021-03-14 18:01:43 Doctor Unassigned, No [facility] XR ANKLE 3+ VW LEFT 2021-03-14 17:35:53 [facility] XR FOOT 3+ VW LEFT 2021-03-14 17:35:53 Luciana Kearney [facility] y [facility] NOTICE OF PRIVACY 2021-03-14 17:21:25 Doctor Unassigned, No Univ [facility] CONSENT/REFUSAL FOR 2021-03-14 17:10:40 Doctor Unassigned, [facility] Branch TREATMENT REFERRAL- 2021-02-10 05:01:00 Doctor Unassigned, No Univer sitstefanie [facility] REQUEST/RESPONSE Name [facility] Encounters Start End Encounter Admission Attending Care Care Encounter Source Date/Time Date/Time Type Type Clinicians Facility Department ID 2021-04-19 Emergency [facility] [id number] Univers 01:37:50 ity of [facility] 2022-09-18 2022-09-18 Outpatient TIA CORTEZ [id number] Tia 11:00:00 11:00:00 BONNYNEL [place] rigoberto 2022-09-13 2022-09-13 Outpatient TIA CORTEZ [id number] Tia 11:15:00 11:15:00 BONNY Seybol rigoberto 2022-09-04 2022-09-04 Outpatient TIA CORTEZ [id number] Tia 11:00:00 11:00:00 BONNY Seybol rigoberto 2022-07-31 2022-07-31 Outpatient TIA CORTEZ [id number] Tia 14:00:00 14:00:00 BONNY [place]ool rigoberto 2021-03-14 2021-03-14 Emergency [facility] [id number] Univers 12:22:00 13:43:00 Luciana Tello [id number] i [facility] [id number] [facility] [id number] [facility] 084 Branch 2021-02-16 2021-02-16 [facility] [id number] Univers 14:30:00 14:30:00 MAXIME ity [facility] 2021-02-10 2021-02-10 Orders Doctor ROY [id number] Univers 00:00:00 00:00:00 Only Unassigned, PINKY [id number] ity of [place] [facility] [id number] [place] [address] [id number] [facility] 009 Branch 2021-02-01 2021-02-01 [facility] [id number] Univers 13:30:00 13:30:00 [facility] Results Test Description Test Time Test Comments Results Result Comments Source Valproic Acid Level 2018-12-23 09:26:37 Test Item Value Reference Range Interpretation Comme nts Valproic Acid Level (test code = Valproic Acid Level) 64.2 ug/mL(g) 50.0-100.0 Thyroid Stimulating [id number] 07:52:44 Test Item Value Reference Range Interpretation Comments TSH (test code = TSH) 2.760 mIU/mL 0.270-4.200 Thyroxine Free [id number] 07:52:44 Test Item Value Reference Range Interpretation Comments T4 Free (test code = T4 Free) 1.280 ng/dL 0.930-1.700 Comprehensive Metabolic [id number] 07:43:19 Test Item Value Reference Range Interpretation [...] A/G 2.3 ratio N Ratio) Comprehensive Metabolic [id number] 07:43:19 Test Item Value Reference Range Interpretation [...] National Kidney Foundation, http://nkdep.ni h.gov Comprehensive Metabolic [id number] 07:43:19 Test Item Value Reference Range Interpretation [...] ag e have not been validated by [facility] MDRD study and should be interpreted wit [...] ag e have not been validated by [facility] MDRD study and should be interpreted wit h caution. eGFR R esult Interpretation: eGFR > or = 60 is in the Normal RangeeGF R < 60 may mean kid hector diseaseeGFR < 1 5 may mean kidney failure Rang es recommended by the National Kidney Foundation, http://nkdep.ni h.gov RPR [id number] 17:53:31 Test Item Value Reference Range Interpretation [...] = 04-17-2020 N Expiration Dt) Thyroid Stimulating [id number] 08:53:34 Test Item Value Reference Range Interpretation Comments TSH (test code = TSH) 4.670 mIU/mL 0.270-4.200 H Lipid [id number] 08:38:28 Test Item Value Reference Range Interpretation Comments Cholesterol Total 179 mg/dL 0-200 RISK OF HE ART (test code = DISEASEPublishe d by Cholesterol Total) [place] [employer] Lorri lyte Optimal Borderl ine Increased RiskC HOL <200 200-239 >240TRI G <150 150-199 >200HDL Male >60 <40HDL Fema le >60 <50LDL <100 130 -159 >160LDL [facility] is 100-129 Triglycerides (test 201 mg/dL 9-200 [...] LDL/HDL Ratio=L DL Calc/HDL Chol Valproic Acid [id number] 08:38:22 Test Item Value Reference Range Interpretation Comments Valproic Acid Level (test code 22.2 ug/mL(g) 50.0-100.0 L = Valproic Acid Level)
[2023-05-02 14:10] LABS: Specific Gravity < 1.005 (1.005-1.030); Urine Bilirubin NEGATIVE (Negative); Urine Blood Negative (Negative); Urine Clarity Clear (Clear); Urine Color Colorless (Yellow); Urine Glucose NEGATIVE (Negative); Urine Protein NEGATIVE (Negative); Urine Urobilinogen Normal (Normal); Urine pH 5.5 (5.0-7.0)
[2023-05-02 14:10] LABS: Absolute Lymphocytes (CBC) 2.3 K/uL (0.7-4.9); Hematocrit 43.4 % (39.6-49.0); MCV 81.6 fL (80-100); MPV 8.2 fL (7.6-11.3); Platelets 138 thou/uL (152-406); RBC Red Blood Cell Count 5.32 M/uL (4.33-5.43)
[2023-05-02 14:20] LABS: Barbiturates NEGATIVE (NEGATIVE); Benzodiazepines NEGATIVE (NEGATIVE); Cocaine NEGATIVE (NEGATIVE); METHAMPHETAM POSITIVE (NEGATIVE); Methadone NEGATIVE (NEGATIVE); Opiates NEGATIVE (NEGATIVE); Phencyclidine NEGATIVE (NEGATIVE); THC Cannibis NEGATIVE (NEGATIVE)
[2023-05-02 14:31] LABS: ALT/SGPT 16 U/L (16-61); AST/SGOT 8 U/L (15-37); Albumin 3.8 g/dL (3.4-5.0); Alkaline Phosphatase 92 U/L (45-117); BUN Blood Urea Nitrogen 7 mg/dL (7-18); Bicarbonate 27 mEq/L (21-32); Bilirubin Direct 0.2 mg/dL (0-0.2); Bilirubin Indirect, Calculated 0.4 mg/dL (0.2-0.8); Bilirubin Total 0.6 mg/dL (0.2-1.0); Glomerular Filtration Rate 113 ml/min (=/>90); Glucose Level 102 mg/dL (74-106); Potassium 3.3 mEq/L (3.5-5.1); Protein, Total 7.2 g/dL (6.4-8.2); Sodium Level 137 mEq/L (136-145)
--- NOTE | 2023-05-02 16:21 | EDPHYS ---
Physician Documentation [facility] Name: Jeremias Toro Age: 42 yrs Sex: Male : 1980 Arrival Date: 05/02/2023 Time: 13:35 Bed 19 Private MD: ED Physician Js Al HPI: 05/02 15:35 This 42 yrs old Male presents to ER via Ambulatory with complaints of Hearing voices, rt Suicidal Ideation, Neck Pain, >24Hrs Old, Back Pain. 15:35 Patient presents to the ED with command auditory hallucinations telling him to kill rt himself by hanging. Patient also reports homicidal ideation. Denies physical pain or denies other acute complaints, symptoms are moderate in severity, no other aggravating or alleviating factors.. Historical: - Allergies: 13:46 NKA; mb9 - Home Meds: 13:46 Depakote 1500 Oral [Active]; Hydroxyzine Oral [Active]; risperidone 2 mg oral tablet 2 mb9 times per day [Active]; - PMHx: 13:40 Anxiety; Bipolar disorder; Schizophrenia; mb9 - PSHx: 13:46 None; mb9 - Immunization history:: Adult Immunizations up to date. - Social history:: Smoking status: Patient reports the use of cigarette tobacco products, smokes one-half pack cigarettes per day. ROS: 15:35 Constitutional: Negative for fever, chills, and weight loss, Cardiovascular: Negative rt for chest pain, palpitations, and edema, Respiratory: Negative for shortness of breath, cough, wheezing, and pleuritic chest pain, Abdomen/GI: Negative for abdominal pain, nausea, vomiting, diarrhea, and constipation, MS/Extremity: Negative for injury and deformity, Skin: Negative for injury, rash, and discoloration, Neuro: Negative for headache, weakness, numbness, tingling, and seizure, 15:35 Psych: Positive for auditory hallucinations, homicidal ideation, suicidal ideation, Exam: 15:35 Constitutional: This is a well developed, well nourished patient who is awake, alert, rt and in no acute distress. Head/Face: Normocephalic, atraumatic. Chest/axilla: Normal chest wall appearance and motion. Nontender with no deformity. No lesions are appreciated. Cardiovascular: Regular rate and rhythm with a normal S1 and S2. No gallops, murmurs, or rubs. Normal PMI, no JVD. No pulse deficits. Respiratory: Lungs have equal breath sounds bilaterally, clear to auscultation and percussion. No rales, rhonchi or wheezes noted. No increased work of breathing, no retractions or nasal flaring. Abdomen/GI: Soft, non-tender, with normal bowel sounds. No distension or tympany. No guarding or rebound. No evidence of tenderness throughout. MS/ Extremity: Pulses equal, no cyanosis. Neurovascular intact. Full, normal range of motion. Neuro: Awake and alert, GCS 15, oriented to person, place, time, and situation. Cranial nerves II-XII grossly intact. Motor strength 5/5 in all extremities. Sensory grossly intact. Cerebellar exam normal. Normal gait. 15:35 ECG was reviewed by the Attending Physician. 15:35 Psych: Calm, cooperative, reports suicidal ideation, auditory hallucinations. Vital Signs: 13:45 BP 142 / 86; Pulse 73; Resp 18; Temp 98.4; Pulse Ox 100% ; Weight 68.04 kg; Height 5 mb9 ft. 7 in. ; 17:08 BP 152 / 89; Pulse 67; Resp 18; Pulse Ox 97% on R/A; db 13:45 Body Mass Index 23.49 (68.04 kg, 170.18 cm) mb9 MDM: 14:23 Patient medically screened. rt 16:21 Differential diagnosis: Psychosis, suicidal ideation, homicidal ideation. Data rt reviewed: vital signs, nurses notes. Consideration of Admission/Observation Escalation of care including admission/observation considered. I considered the following discharge prescriptions or medication management in the emergency department Medications were administered in the Emergency Department. See MAR. 16:22 Care significantly affected by the following chronic conditions: Schizophrenia. rt Counseling: I had a detailed discussion with the patient and/or guardian regarding the historical points, exam findings, and any diagnostic results supporting the discharge/admit diagnosis, lab results, the need to transfer to another facility. 05/02 13:53 Order name: Acetaminophen; Complete Time: 15:27 rt 05/02 13:53 Order name: Basic Metabolic Panel; Complete Time: 15:27 rt 05/02 13:53 Order name: CBC with Diff; Complete Time: 14:38 rt 05/02 13:53 Order name: ETOH Level; Complete Time: 14:38 rt 05/02 13:53 Order name: Hepatic Function; Complete Time: 15:27 rt 05/02 13:53 Order name: PT-INR; Complete Time: 14:38 rt 05/02 13:53 Order name: Ptt, Activated; Complete Time: 14:38 rt 05/02 13:53 Order name: Salicylate; Complete Time: 14:38 rt 05/02 13:53 Order name: Urinalysis w/ reflexes rt 05/02 13:53 Order name: Urine Drug Screen; Complete Time: 14:38 rt 05/02 13:53 Order name: EKG; Complete Time: 13:54 rt 05/02 13:53 Order name: EKG - Nurse/Tech; Complete Time: 16:08 rt 05/02 13:53 Order name: IV Saline Lock; Complete Time: 14:04 rt 05/02 13:53 Order name: Labs collected and sent; Complete Time: 14:04 rt 05/02 13:53 Order name: Suicide Precautions; Complete Time: 16:08 rt 05/02 13:53 Order name: Suicide Screening ([place]); Complete Time: 16:08 rt EC:35 Rate is 73 beats/min. Rhythm is regular, Normal Sinus Rhythm with No ectopy. QRS [place] rt is Normal. [place] interval is normal. QRS interval is normal. QT interval is normal. No Q waves. T waves are Normal. No ST changes noted. Interpreted by me. Administered Medications: 17:07 Drug: LORazepam PO 1 mg PO once Route: PO; db 17:15 Follow up: Response: No adverse reaction db Disposition Summary: 05/02/23 16:21 Transfer Ordered Notes: Transfer Location: Psych Facility rt Reason: Specialty rt Condition: Stable rt Problem: new rt Symptoms: are unchanged rt Accepting Physician: (05/02/23 17:15) db Diagnosis - Suicidal ideation rt - Command auditory hallucinations rt Forms: - Medication Reconciliation Form rt - SBAR form rt Signatures: Dispatcher [employer] Atiya Araiza RN RN db Argenis Gomez RN RN mb9 Js Al MD MD rt Corrections: (The following items were deleted from the chart) 17:15 16:21 rt db
--- NOTE | 2023-05-02 16:21 | ER ---
Nurse's Notes [facility] Name: Jeremias Toro Age: 42 yrs Sex: Male : 1980 Arrival Date: 05/02/2023 Time: 13:35 Bed 19 Private MD: Diagnosis: Suicidal ideation;Command auditory hallucinations Presentation: 05/02 13:45 Chief complaint: Patient states: "I'm hearing voices, they are telling me to hurt mb9 myself and other people. I was talked down from hanging myself by my mom.". Coronavirus screen: Vaccine status: Patient reports receiving the 2nd dose of the covid vaccine. Ebola Screen: No symptoms or risks identified at this time. Initial Sepsis Screen: Does the patient meet any 2 criteria? No. Patient's initial sepsis screen is negative. Does the patient have a suspected source of infection? No. Patient's initial sepsis screen is negative. Risk Assessment: Do you want to hurt yourself or someone else? Patient reports desire/thoughts of hurting themselves or someone else. Provider notified. Onset of symptoms was May 02, 2023. 13:45 Method Of Arrival: Ambulatory mb9 13:45 Acuity: CATALINA 2 mb9 Triage Assessment: 13:48 General: Appears uncomfortable, Behavior is cooperative. Pain: Denies pain. EENT: No mb9 signs and/or symptoms were reported regarding the EENT system. Neuro: Recinos Agitation-Sedation Scale (RASS): 0 - Alert and Calm Level of Consciousness is awake, alert, obeys commands, Oriented to person, place, time, situation, Appropriate for age. Historical: - Allergies: 13:46 NKA; mb9 - Home Meds: 13:46 Depakote 1500 Oral [Active]; Hydroxyzine Oral [Active]; risperidone 2 mg oral tablet 2 mb9 times per day [Active]; - PMHx: 13:40 Anxiety; Bipolar disorder; Schizophrenia; mb9 - PSHx: 13:46 None; mb9 - Immunization history:: Adult Immunizations up to date. - Social history:: Smoking status: Patient reports the use of cigarette tobacco products, smokes one-half pack cigarettes per day. Screenin:[address] [facility] ED Fall Risk Assessment (Adult) History of falling in the last 3 months, db including since admission No falls in past 3 months (0 pts) Confusion or Disorientation No (0 pts) Intoxicated or Sedated No (0 pts) Impaired Gait No (0 pts) Mobility Assist Device Used No (0 pt) Altered Elimination No (0 pt) Score/Fall Risk Level 0 - 2 = Low Risk Oriented to surroundings, Maintained a safe environment. Abuse screen: Denies threats or abuse. Denies injuries from another. Nutritional screening: No deficits noted. Tuberculosis screening: No symptoms or risk factors identified. Assessment: 14:17 Reassessment: Patient appears in no apparent distress at this time. Patient and/or db family updated on plan of care and expected duration. Pain level reassessed. Patient is alert, oriented x 3, equal unlabored respirations, skin warm/dry/pink. General: Appears in no apparent distress. comfortable, Behavior is calm, cooperative. Pain: Complains of pain in head. Neuro: Level of Consciousness is awake, alert, obeys commands, Oriented to person, place, time, situation. Respiratory: Airway is patent Respiratory effort is even, unlabored, Respiratory pattern is regular, agonal. 15:00 Reassessment: Patient appears in no apparent distress at this time. Patient and/or db family updated on plan of care and expected duration. Pain level reassessed. Patient is alert, oriented x 3, equal unlabored respirations, skin warm/dry/pink. 16:11 Reassessment: REPORT CALLED TO XANDER FROM [facility]. db 17:09 Reassessment: Patient appears in no apparent distress at this time. Patient and/or db family updated on plan of care and expected duration. Pain level reassessed. Patient is alert, oriented x 3, equal unlabored respirations, skin warm/dry/pink. Patient states feeling better. Psych: 12:47 [place] Suicide Severity Screening: In the past month, have you wished you were db or wished you could go to sleep and not wake up? Patient responds "yes." "In the past month, have you actually had any thoughts of killing yourself?" Patient responds "yes." "In your lifetime, have you ever done anything, started to do anything, or prepared to do anything to end your life?" Patient responds "yes." Patient reports suicidal intent within 3 past months. Subjective: Patient's mood is sad, Delusions are denied, Hallucinations are auditory, Having thoughts of suicide. Plan for suicide is HANGING SELF. 12:47 Objective: Patient is cooperative, Speech is normal, Affect is appropriate. db Interventions: Removed personal items and placed in bag. Patient placed in hospital gown. Searched person for dangerous items. Urine collected and sent for urine drug test. Belonging list filled out. Safety Checks: Personal items have been removed. Door is open. No visitors are present at this time. Pt denies substance abuse. Commitment: Patient will be a voluntary commitment. Vital Signs: 13:45 BP 142 / 86; Pulse 73; Resp 18; Temp 98.4; Pulse Ox 100% ; Weight 68.04 kg; Height 5 mb9 ft. 7 in. ; 17:08 BP 152 / 89; Pulse 67; Resp 18; Pulse Ox 97% on R/A; db 13:45 Body Mass Index 23.49 (68.04 kg, 170.18 cm) mb9 ED Course: 13:37 Patient arrived in ED. im 13:38 Js Al MD is Attending Physician. rt 13:40 Arm band placed on. mb9 13:46 Triage completed. mb9 14:04 Basic Metabolic Panel Sent. mb9 14:04 CBC with Diff Sent. mb9 14:04 ETOH Level Sent. mb9 14:04 Hepatic Function Sent. mb9 14:04 PT-INR Sent. mb9 14:04 Ptt, Activated Sent. mb9 14:04 Salicylate Sent. mb9 14:04 Urinalysis w/ reflexes Sent. mb9 14:04 Urine Drug Screen Sent. mb9 14:17 Patient has correct armband on for positive identification. Bed in low position. Call db light in reach. Side rails up X 1. Warm blanket given. Patient is placed in psych hold. 14:17 Inserted saline lock: 20 gauge in right antecubital area, using aseptic technique. db Blood collected. 15:58 faxed chart to [facility]. bd 16:08 Atiya Easton, RN is Primary Nurse. db 16:56 pt accepted in transfer to [facility] by dr akers admin approval given by mariah marc, pt transported by ems. 17:09 Provided Education on: TRANSPORT. db 17:09 No provider procedures requiring assistance completed. IV discontinued, intact, db bleeding controlled, No redness/swelling at site. Administered Medications: 17:07 Drug: LORazepam PO 1 mg PO once Route: PO; db 17:15 Follow up: Response: No adverse reaction db Medication: 14:17 VIS not applicable for this client. db Outcome: 16:21 ER care complete, transfer ordered by . rt 17:09 Transferred by ground EMS Transfer form completed. Note: [facility] db 17:09 Condition: stable 17:15 Patient left the ED. db Signatures: Enriqueta Trevino Danielle, RN RN db Argenis Gomez RN RN mb9 Js Al MD MD rt Paola Hernandez im
[2023-05-02] MEDS ORDERED: LORAZEPAM 1 MG TABLET ONE (17:21)
[2023-05-02 17:41] VITALS: TEMP 98.4
[2023-05-02 17:42] VITALS: BP 152/89; O2SAT 97
--- NOTE | 2023-05-03 10:43 | EKG ---
Test Date: 2023-05-02 Test Time: 14:34:58 Periodontal Assistant: GRETEL MEASUREMENT RESULTS: Intervals: Rate: 73 VT: 132 QRSD: 92 QT: 406 QTc: 447 [place]: P: VT: 132 QRS: 74 T: 58 INTERPRETIVE STATEMENTS: Normal sinus rhythm Normal ECG Compared to ECG 08/19/2015 22:41:14 Accelerated junctional rhythm no longer present Left ventricular hypertrophy no longer present Electronically Signed On 05-03-23 10:41:52 [employer] by Attila Gonzalez
== END 2023-05-02 17:15 ==
LOC: ER 13:35
DX: R45.851 Suicidal ideations (principal); R44.0 Auditory hallucinations; F17.210 Nicotine dependence, cigarettes, uncomplicated
CPT/HCPCS: 36415; 80048; 80076; 80143; 80179; 80307; 81003; 82077; 85025; 85610; 85730; 93005; 99285

== ENCOUNTER 2024-03-17 08:49 | Emergency (ER) | payer OTHER ==
--- NOTE | 2024-03-17 09:13 | EDPHYS ---
Physician Documentation [facility] Name: Jeremias Toro Age: 43 yrs Sex: Male : 1980 Arrival Date: 03/17/2024 Time: 08:49 Bed IW1 Private MD: ED Physician Guillermo Hensley HPI: 03/17 09:04 This 43 yrs old Male presents to ER via Unassigned with complaints of Arm Injury. cp 09:04 The patient or guardian complains of injury, reports fractured left hand sustained on cp 03 of March. Reports being seen at [place] and diagnosed with fractured left hand. Treatment prior to arrival includes: splinting the affected extremity. Associated signs and symptoms: The patient has no apparent associated signs or symptoms. Patient reports he has not had f/u with ortho and is here at the emergency room to have hand placed in cast. Historical: - Allergies: 09:08 NKA; bp - PMHx: 09:08 Anxiety; Bipolar disorder; Schizophrenia; bp - Immunization history:: Adult Immunizations unknown. - Infectious Disease History:: Denies. - Social history:: Smoking status: unknown. ROS: 09:07 Eyes: Negative for injury, pain, redness, and discharge, cp 09:07 Constitutional: Negative for body aches, chills, fever, 09:07 Neck: Negative for pain with movement, pain at rest, stiffness, 09:07 Respiratory: Negative for cough, shortness of breath, wheezing, 09:07 Abdomen/GI: Negative for abdominal pain, nausea, vomiting, and diarrhea, 09:07 MS/extremity: Positive for injury or acute deformity, of the left hand, 09:07 All other systems are negative, Exam: 09:08 Head/Face: Normocephalic, atraumatic. cp 09:08 Constitutional: The patient appears in no acute distress, alert, awake, non-toxic, well developed, well nourished, 09:08 Chest/axilla: Inspection: normal, 09:08 Cardiovascular: Rate: normal, 09:08 Respiratory: the patient does not display signs of respiratory distress, Respirations: normal, no use of accessory muscles, labored breathing, is not present, Breath sounds: are clear throughout, no decreased breath sounds, no stridor, 09:08 Abdomen/GI: Inspection: abdomen appears normal, 09:08 Musculoskeletal/extremity: Extremities: noted in the left hand: tenderness, Vital Signs: 09:04 BP 133 / 103; Pulse 91; Resp 16; Temp 98; Pulse Ox 100% ; bp MDM: 09:04 Patient medically screened. cp 09:11 Data reviewed: vital signs, nurses notes, and as a result, I will discharge patient. cp 09:11 Counseling: I had a detailed discussion with the patient and/or guardian regarding on cp issue that emergency room does not have materials to place a cast and that patient would need to f/u orthopedist. Administered Medications: No medications were administered Disposition: 18:00 I was immediately available on-site in the Emergency Department for consultation in the ms3 care of the patient. Disposition Summary: 03/17/24 09:11 Discharge Ordered Notes: Location: Home cp Problem: new cp Symptoms: are unchanged cp Condition: Stable cp Diagnosis - Encounter for examination and observation for other specified reasons cp Followup: cp - With: Parrish Ibrahim MD - When: 2 - 3 days - Reason: Recheck today's complaints Discharge Instructions: - Discharge Summary Sheet cp - Hand Pain cp Forms: - Medication Reconciliation Form cp - Antibiotic Education cp - Prescription Opioid Use cp - Patient Portal Instructions cp - Leadership Thank You Letter cp Signatures: Anton Lantigua PA PA cp Peltier, Brian, CAT RN Guillermo Dyer DO DO ms3
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
[2024-03-17 09:20] VITALS: BP 133/103; TEMP 98; O2SAT 100
== END 2024-03-17 09:15 | disposition home or self-care (01) ==
LOC: ER 08:49
DX: S62.92XA Unspecified fracture of left hand, initial encounter for closed fracture (principal)
CPT/HCPCS: 99282